=== PATIENT | female | born 1940 | race Caucasian/White ===

== ENCOUNTER 2024-06-06 19:59 | Emergency (ER) | payer MEDICAID, MEDICARE ==
[~2024-06-06] VITALS: Ht 170.2 cm; Wt 52.2 kg
[2024-06-06 20:32] VITALS: TEMP 97.9
[2024-06-06 20:59] VITALS: BP 132/78; O2SAT 93
== END 2024-06-07 00:39 | disposition home or self-care (01) ==
LOC: M ED 19:59
DX: S01.01XA Laceration without foreign body of scalp, initial encounter (principal); F03.90 Unspecified dementia, unspecified severity, without behavioral disturbance, psychotic disturbance, mood disturbance, and anxiety; Y92.9 Unspecified place or not applicable; Y93.9 Activity, unspecified; Y99.9 Unspecified external cause status